=== PATIENT | female | born 1995 | race Caucasian/White ===

== ENCOUNTER 2018-02-02 16:05 | Emergency (ER) | payer OTHER ==
[~2018-02-02] VITALS: Ht 162.6 cm; Wt 102.4 kg
[2018-02-02 17:43] LABS: HEMATOCRIT 37.1 % (36.0-46.0); HEMOGLOBIN 12.3 G/DL (11.9-15.5); MCH 29.1 PG (29.0-34.0); MCHC 33.2 G/DL (30.0-36.0); MCV 87.9 FL (83-99); PLATELET COUNT 288 K/uL (156-360); RBC DIS.WIDTH-SD 41.7 % (39-53); RED BLOOD COUNT 4.22 M/uL (3.80-5.20); WHITE BLOOD COUNT 9.8 K/uL (4.1-10.2)
[2018-02-02 17:55] LABS: ALBUMIN 4.3 g/dL (3.2-4.8); CHLORIDE 108 mEq/L (99-109); POTASSIUM 3.7 mEq/L (3.7-5.4); SODIUM 140 mEq/L (136-147)
[2018-02-02 17:57] LABS: GLUCOSE 80 mg/dL (70-99); TOTAL PROTEIN 7.9 g/dL (6.4-8.3)
[2018-02-02 17:59] LABS: TOTAL BILIRUBIN 0.6 mg/dL (0.0-1.0)
[2018-02-02 18:01] LABS: ALKALINE PHOSPHATASE 83 IU/L (3-129); CREATININE 0.7 mg/dL (0.6-1.3); GFR ESTIMATE (CALCULATED) > 59 mL/min/
[2018-02-02 18:02] LABS: UREA NITROGEN (BUN) 15 mg/dL (9-23)
[2018-02-02 18:03] LABS: AST (GOT) 18 IU/L (2-34)
[2018-02-02 18:04] LABS: ALT (GPT) 19 IU/L (3-49)
[2018-02-02 18:25] LABS: APPEARANCE SL.HAZY ((CLEAR)); BILIRUBIN NEGATIVE; BLOOD LARGE; COLOR YELLOW ((YELLOW)); GLUCOSE (STRIP) NEGATIVE; KETONES 20; LEUKOCYTES LARGE; NITRITE NEGATIVE; PROTEIN (STRIP) 30; SPECIFIC GRAVITY 1.027 (1.000-1.030); UROBILINOGEN 0.2 MG/DL (0.2-1.0)
[2018-02-02 18:36] LABS: BACTERIA NONE SEEN /HPF; EPITHELIAL CELLS 1+ /HPF; MUCUS TRACE /LPF; UCUL ADDED? YES; WHITE BLOOD CELLS 15-20 /HPF (0-5)
[2018-02-02] MEDS ORDERED: KEFLEX500 MG PO (18:38)
[2018-02-02] MEDS ORDERED: MOTRIN600 MG PO (18:39)
[2018-02-02] MEDS ORDERED: PERCOCET 5/31 TABLET PO (18:39)
[2018-02-02 18:49] VITALS: BP 113/69
== END 2018-02-02 18:50 | disposition home or self-care (01) ==
LOC: EME 16:05
PROVIDERS: Nurse Practitioner Family
DX: N39.0 Urinary tract infection, site not specified (principal); Z30.431 Encounter for routine checking of intrauterine contraceptive device
CPT/HCPCS: 76856; 80053; 81003; 85027; 87086; 99281; 99284